=== PATIENT | male | born 1990 | race Caucasian/White ===

== ENCOUNTER 2020-05-29 09:59 | Emergency (ER) | payer BC ==
[~2020-05-29] VITALS: Ht 177.8 cm; Wt 90.7 kg
[2020-05-29 10:56] LABS: ABSOLUTE NEUTROPHILS 2.4 thou/uL (1.4-8.2); EOSINOPHILS 1.4 % (0.0-3.0); HEMATOCRIT 40.1 % (42.0-52.0); LYMPHOCYTES 29.1 % (24.0-44.0); MCH 29.7 pg (26.0-34.0); MCHC 34.8 g/dL (28.0-37.0); MCV 85.4 fL (80.0-100.0); MONOCYTES 12.6 % (1.0-8.0); PLATELET COUNT 142 thou/uL (150-400); POLYS 55.9 % (36.0-66.0); RDW 13.1 % (10.5-14.5); WBC 4.3 thou/uL (4.0-11.0)
[2020-05-29 11:02] LABS: CREATININE 0.8 mg/dL (0.7-1.3); POTASSIUM 3.9 mmol/L (3.5-5.1)
[2020-05-29 11:09] LABS: ALBUMIN 4.2 g/dL (3.4-5.0); TOTAL BILIRUBIN 0.7 mg/dL (0.2-1.0); TOTAL PROTEIN 7.8 g/dL (6.4-8.2)
[2020-05-29] MEDS ORDERED: BUTALB-APAP-CA1 EACH PO (13:26)
[2020-05-29 13:43] VITALS: BP 108/66
== END 2020-05-29 13:43 | disposition home or self-care (01) ==
LOC: ER 09:59
PROVIDERS: Emergency Medicine
DX: R51.9 Headache, unspecified (principal); R50.9 Fever, unspecified; L98.8 Other specified disorders of the skin and subcutaneous tissue